=== PATIENT | male | born 1990 | race Caucasian/White ===

== ENCOUNTER 2022-12-06 15:22 | Observation (INO) ==
--- NOTE | 2022-12-06 15:43 | Emergency Department Note ---
Impression & Plan Hypoxia ADMIT ED Provider Note HPI: The patient is a 32-year-old gentleman who presents emergency department today from the outpatient surgery center with concern for hypoxia. Patient underwent tonsillectomy today with Dr. Eller. I did receive a call about the patient prior to his arrival from anesthesia, Dr. Uribe, who stated that after the patient's unremarkable procedure he had issues keeping his oxygen saturations out of the 80s once nasal cannula oxygen was removed. Concern does exist for noncardiogenic pulmonary edema and given his continued supplemental oxygen requirement they recommended transport to the ED for further management. On my initial assessment here in the ED the patient overall appears well, he is alert, he is hemodynamically stable, he is saturating at 98% on 4 L nasal cannula oxygen without tachypnea. He denies any chest pain. States he feels "sleepy". He is otherwise tolerating his secretions without issue, complains of a mild sore throat status post tonsillectomy today. ROS: - Per HPI *Outpatient medications and allergy history reviewed. *Pertinent external medical records reviewed. 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 Medical Decision Making: On arrival here to the ED the patient overall appears well, he is alert, he is stable on 4 L nasal cannula oxygen on my initial evaluation, denies any chest pain or current shortness of breath. Lab work obtained, patient was maintained on radiographer cardiac catheterization. Lab work shows no leukocytosis, hemoglobin is stable at 15.9, platelet count within normal limits, venous blood gas was obtained and shows mild acidosis with pH of 7.33, PCO2 just lightly elevated at 55, patient does not have any wheezing on my exam. CMP obtained does not show any critical electrolyte abnormalities. Chest x-ray was obtained that does not show any evidence of acute abnormalities, no evidence of pulmonary edema. Patient did have an episode of hypoxia at 88% when nasal cannula oxygen was not on. He was eventually weaned to room air with oxygen saturations borderline at about 92% with ambulation on Room Air. Given the patient's postoperative hypoxia that was prolonged, he will be admitted to observation overnight. Case was discussed with the on-call hospitalist, Dr. Montgomery, and the placement was placed for admission in stable condition. Consultants: Hospitalist, Dr. Montgomery Disposition discussion held by myself with: Patient and significant other at the bedside Diagnosis: 1. Postoperative hypoxia, acute 2. Status post tonsillectomy, postoperative day 0 Disposition: Admission Rohit Mason DO Emergency Medicine Past Med/Surg History Medical History History of COVID-19 2020 cold symptoms. Surgical History History of appendectomy History of wisdom tooth extraction Family History Other No family history of adverse response to anesthesia Social History Smoking Status: Never smoker Second Hand Exposure: No; Do You Dip or Chew Tobacco: No; Hx Alcohol Use: Yes Alcohol type: beer Alcohol Intake Frequency Comment: 1 OR 2 A WEEK Hx Substance Use: No Preferred Language: Yakut Communication Ability: Effective Biological Science Aide Required: No Beliefs That Will Affect Care: None Current Living Situation: Alone Feels Safe at Home: Yes Assistive Devices: None Allergies Allergies Allergy/AdvReac Type Severity Reaction Status Date / Time No Known Allergies Allergy Verified 12/06/22 17:18 Home Meds Previous Rx's Medication Instructions Recorded oxycodone 5 mg/5 mL oral solution 5 mg (5 mL) PO Q4H PRN pain #210 mL 12/06/22 Results & Data (ED) Vital Signs Vital Signs - 24 hr 12/06/22 15:22 12/06/22 15:30 12/06/22 16:01 Temperature 36.7 C Temperature Source Oral Pulse Rate 79 72 Pulse Rate [Apical] 72 Pulse Rhythm Regular Respiratory Rate 20 20 18 Respiratory Depth Normal Blood Pressure 120/74 Blood Pressure [Right Arm] 117/75 Blood Pressure Mean 89 Blood Pressure Mean [Right Arm] 89 Pulse Oximetry 96 95 96 Oxygen Delivery Method Nasal Cannula Nasal Cannula Nasal Cannula Oxygen Flow Rate 4 4 4 Sepsis Recent Fever Within 48 Hours No Sepsis New/Unexplained Change in Mental Status No Sepsis Action Taken by Nursing No Action Required 12/06/22 15:54 12/06/22 17:09 12/06/22 17:10 Temperature Temperature Source Pulse Rate 76 Pulse Rate [Apical] 53 L Pulse Rhythm Respiratory Rate 19 Respiratory Depth Blood Pressure Blood Pressure [Right Arm] 141/87 H Blood Pressure Mean Blood Pressure Mean [Right Arm] 105 Pulse Oximetry 95 88 L Oxygen Delivery Method Nasal Cannula Room Air Oxygen Flow Rate 3 Sepsis Recent Fever Within 48 Hours Sepsis New/Unexplained Change in Mental Status Sepsis Action Taken by Nursing Laboratory Data 12/06/22 15:52 12/06/22 15:52 Lab Results 12/06/22 12/06/22 12/06/22 Range/Units 15:52 15:52 15:52 WBC 9.67 (4.8-10.8) K/ul RBC 5.25 (4.70-6.10) M/uL Hgb 15.9 (14.0-18.0) g/dl Hct 43.7 (42.0-52.0) % MCV 83.2 (80.0-100.0) fL MCH 30.3 (25.0-34.0) pg MCHC 36.4 H (32.0-36.0) g/dL RDW Std Deviation 35.8 L (36.4-46.3) fL RDW Coeff of Miguel 11.9 (11.5-14.5) % Plt Count 175 (130-400) K/uL MPV 8.6 L (9.4-12.4) fL Immature Gran % (Auto) 0.4 % Neut % (Auto) 89.9 % Lymph % (Auto) 8.0 % [place] % (Auto) 1.4 % Eos % (Auto) 0.1 % Baso % (Auto) 0.2 % Neut # (Auto) 8.69 H (1.40-6.50) K/uL Lymph # (Auto) 0.77 L (1.2-3.4) K/uL [place] # (Auto) 0.14 (0.11-0.59) K/uL Eos # (Auto) 0.01 (0-0.50) K/uL Baso # (Auto) 0.02 (0-0.2) K/uL Immature Gran # (Auto) 0.04 (0.01-0.20) K/uL PT 11.0 (9.0-12.0) Seconds INR 1.0 (0.9-1.1) VBG pH (7.36-7.41) VBG pCO2 (38-50) mmHg VBG pO2 mmHg VBG HCO3 mmol/L VBG O2 Saturation % VBG Base Excess mEq/L Sodium 138 (136-145) mmol/L Potassium 4.3 (3.5-5.1) mmol/L Chloride 104 (98-107) mmol/L Carbon Dioxide 26 (21-32) mmol/L Anion Gap 8 (3-11) BUN 13 (6-23) mg/dl Creatinine 0.97 (0.6-1.4) mg/dl Est Cr Clr Drug Dosing 139.9 ml/min Est GFR ( Amer) 119.2 ml/min Est GFR (Non-Af Amer) 102.9 ml/min BUN/Creatinine Ratio 13.4 (10-20) Glucose 105 H (70-99(Fasting)) mg/dl Calcium 9.3 (8.6-10.3) mg/dl Total Bilirubin 0.6 (0.2-1.0) mg/dl AST 26 (13-39) U/L ALT 35 (7-52) U/L Alkaline Phosphatase 62 (34-104) U/L Total Protein 7.3 (6.0-8.3) gm/dl Albumin 4.3 (3.4-5.0) gm/dl Globulin 3.0 (2.5-4.0) gm/dl Albumin/Globulin Ratio 1.4 (0.9-2) SARS-CoV-2, RNA, NAAT (NEGATIVE) 12/06/22 12/06/22 Range/Units 15:52 16:10 WBC (4.8-10.8) K/ul RBC (4.70-6.10) M/uL Hgb (14.0-18.0) g/dl Hct (42.0-52.0) % MCV (80.0-100.0) fL MCH (25.0-34.0) pg MCHC (32.0-36.0) g/dL RDW Std Deviation (36.4-46.3) fL RDW Coeff of Miguel (11.5-14.5) % Plt Count (130-400) K/uL MPV (9.4-12.4) fL Immature Gran % (Auto) % Neut % (Auto) % Lymph % (Auto) % [place] % (Auto) % Eos % (Auto) % Baso % (Auto) % Neut # (Auto) (1.40-6.50) K/uL Lymph # (Auto) (1.2-3.4) K/uL [place] # (Auto) (0.11-0.59) K/uL Eos # (Auto) (0-0.50) K/uL Baso # (Auto) (0-0.2) K/uL Immature Gran # (Auto) (0.01-0.20) K/uL PT (9.0-12.0) Seconds INR (0.9-1.1) VBG pH 7.33 L (7.36-7.41) VBG pCO2 55 H (38-50) mmHg VBG pO2 21 mmHg VBG HCO3 29 mmol/L VBG O2 Saturation < 60.0 % VBG Base Excess 1.9 mEq/L Sodium (136-145) mmol/L Potassium (3.5-5.1) mmol/L Chloride (98-107) mmol/L Carbon Dioxide (21-32) mmol/L Anion Gap (3-11) BUN (6-23) mg/dl Creatinine (0.6-1.4) mg/dl Est Cr Clr Drug Dosing ml/min Est GFR ( Amer) ml/min Est GFR (Non-Af Amer) ml/min BUN/Creatinine Ratio (10-20) Glucose (70-99(Fasting)) mg/dl Calcium (8.6-10.3) mg/dl Total Bilirubin (0.2-1.0) mg/dl AST (13-39) U/L ALT (7-52) U/L Alkaline Phosphatase (34-104) U/L Total Protein (6.0-8.3) gm/dl Albumin (3.4-5.0) gm/dl Globulin (2.5-4.0) gm/dl Albumin/Globulin Ratio (0.9-2) SARS-CoV-2, RNA, NAAT NEGATIVE (NEGATIVE) Administered Medications Discontinued Medications Morphine Sulfate (Morphine Sulfate 2 Mg/Ml Carp) 2 mg IV NOW STA Stop: 12/06/22 17:11 Last Admin: 12/06/22 17:46 Dose: 2 mg Documented By: JEAN Ondansetron HCl (Ondansetron Inj 2 Mg/Ml 2 Ml Vial) Confirm Administered Dose 4 mg .ROUTE .STK-MED ONE Stop: 12/06/22 18:00 Last Admin: 12/06/22 18:23 Dose: Not Given Documented By: Ondansetron HCl (Ondansetron Inj 2 Mg/Ml 2 Ml Vial) 4 mg IV NOW STA Stop: 12/06/22 18:09 Last Admin: 12/06/22 18:16 Dose: 4 mg Documented By: Imaging Data Radiologist's Impression: Chest X-Ray 12/06/22 15:32 XR chest 1V portable HISTORY: 32 years-old Male Dyspnea COMPARISON: None TECHNIQUE: AP view of the chest FINDINGS: Cardiomediastinal and hilar silhouettes are within normal limits. Eventration of the right hemidiaphragm. No pneumothorax, pleural effusion, airspace consolidation or pulmonary edema. Bones of the chest appear grossly intact. IMPRESSION: No acute process. ACT 112: Negative or not required by law. The above report was generated using voice recognition software. It may contain grammatical, syntax or spelling errors. Electronically signed by: Franklin Espinosa M.D. 12/06/2022 3:55 PM Discharge Plan Visit Data Chief Complaint: Abnormal Labs/Diagnostic Testing Stated Complaint: TONSILECTOMY, "TROUBLING KEEPING SATS UP" ED Provider: Rohit Mason Discharge Problem: Hypoxia Patient Disposition: Admitted As Inpatient Discharge Instructions Interventions: ED Discharge Assessment Last Done: 12/06/22 18:31
--- NOTE | 2022-12-06 15:57 | XRay Report ---
XR chest 1V portable HISTORY: 32 years-old Male Dyspnea COMPARISON: None TECHNIQUE: AP view of the chest FINDINGS: Cardiomediastinal and hilar silhouettes are within normal limits. Eventration of the right hemidiaphr agm. No pneumothorax, pleural effusion, airspace consolidation or pulmonary edema. Bones of the chest appear grossly intact. IMPRESSION: No acute process. ACT 112: Negative or not required by law. The above report was generated using voice recognition software. It may contain grammatical, syntax o r spelling errors. Electronically signed by: Franklin Espinosa M.D. 12/06/2022 3:55 PM
[2022-12-06 16:08] LABS: Base Excess VBG 1.9 mEq/L; HCO3 VBG 29 mmol/L; Oxygen Saturation VBG < 60.0 %; PCO2 VBG 55 mmHg (38-50); PO2 VBG 21 mmHg; pH VBG 7.33 (7.36-7.41)
[2022-12-06 16:13] LABS: Basophils # (auto) 0.02 K/uL (0-0.2); Basophils % (auto) 0.2 %; Eosinophils # (auto) 0.01 K/uL (0-0.50); Eosinophils % (auto) 0.1 %; Hematocrit (blood only) 43.7 % (42.0-52.0); Hemoglobin 15.9 g/dl (14.0-18.0); Immature Granulocytes # (auto) 0.04 K/uL (0.01-0.20); Immature Granulocytes % (auto) 0.4 %; Lymphocytes # (auto) 0.77 K/uL (1.2-3.4); Mean Corpuscular Hemoglobin 30.3 pg (25.0-34.0); Mean Corpuscular Hgb Conc 36.4 g/dL (32.0-36.0); Mean Corpuscular Volume 83.2 fL (80.0-100.0); Mean Platelet Volume 8.6 fL (9.4-12.4); Monocytes # (auto) 0.14 K/uL (0.11-0.59); Monocytes % (auto) 1.4 %; Neutrophils # (auto) 8.69 K/uL (1.40-6.50); Neutrophils % (auto) 89.9 %; Platelet Count 175 K/uL (130-400); RDW Coefficient of Variation 11.9 % (11.5-14.5); RDW Standard Deviation 35.8 fL (36.4-46.3); Red Blood Count 5.25 M/uL (4.70-6.10); White Blood Count 9.67 K/ul (4.8-10.8)
[2022-12-06 16:28] LABS: Albumin Globulin Ratio 1.4 (0.9-2); Albumin Level 4.3 gm/dl (3.4-5.0); BUN Creatinine Ratio 13.4 (10-20); Bilirubin,Total 0.6 mg/dl (0.2-1.0); Calcium 9.3 mg/dl (8.6-10.3); Creatinine Clr Calc Pharmacy 139.9 ml/min; Est GFR (African American) 119.2 ml/min; Est GFR (Non-African American) 102.9 ml/min; Potassium 4.3 mmol/L (3.5-5.1); Total Protein 7.3 gm/dl (6.0-8.3)
[2022-12-06] MEDS ORDERED: MoRPHine SULFATE 2 MG/ML CARP IV STA (17:10)
[2022-12-06] MEDS ORDERED: ONDANSETRON INJ 2 MG/ML 2 ML VIAL ONE (17:59)
[2022-12-06] MEDS ORDERED: ONDANSETRON INJ 2 MG/ML 2 ML VIAL IV STA (18:08)
--- NOTE | 2022-12-06 18:13 | History & Physical Report ---
Date of Service December 06, 2022 Assessment & Plan (1) Postoperative hypoxia: Plan: 88% on room air on admission, suspect just taking time to recover. Consider sleep apnea testing if still having symptoms of this following recovery from tonsillectomy No acute pathology noted on CXR Incentive spirometer (2) Tonsillar hypertrophy: Plan: s/p tonsillectomy earlier today. No NSAIDs per Dr Cormier's Acetaminophen 1st line, oxycodone 2nd line for pain (3) Sleep-disordered breathing: Plan: Reason for tonsillectomy Plan VTE Prophylaxis - low risk Diet - Regular, soft bite sized Disposition - admit to med/surg Admission and Anticipated Discharge Date Admission Date: December 06, 2022 History of Present Illness Chief Complaint: Hypoxia Primary Care Provider: Madhav Cummins DO Medardo Mcmillan is a 32 year old male who presents to the ER due to hypoxia following tonsillectomy earlier today. The patient denies any shortness of breath. Notes sleep disordered breathing which was the reason for his tonsillectomy in the first place. Tired following the procedure with a sore throat but tolerating liquids. O2 sats 88% on room air. No known history of lung disease. Never smoker. Allergies Allergy/AdvReac Type Severity Reaction Status Date / Time No Known Allergies Allergy Verified 12/06/22 17:18 Home Medications Medication Instructions Recorded Confirmed Type oxycodone 5 mg/5 mL oral solution 5 mg (5 mL) PO Q4H PRN pain #210 mL 12/06/22 12/06/22 Rx Past Med/Surg History Medical History History of COVID-19 2020 cold symptoms. Surgical History History of appendectomy History of wisdom tooth extraction Family History Other No family history of adverse response to anesthesia Social History Smoking Status: Never smoker Second Hand Exposure: No; Do You Dip or Chew Tobacco: No; Tobacco Cessation Education Requested by Patient: No Hx Alcohol Use: Yes Alcohol type: beer Alcohol Intake Frequency Comment: 1 OR 2 A WEEK Hx Substance Use: No Preferred Language: Japanese Communication Ability: Effective Private Tutor Required: No Beliefs That Will Affect Care: None Current Living Situation: Other Current Living Situation Comment: girl friend Other Information That Helps Us Care for You: No Feels Safe at Home: Yes Safety Concerns: Feels Safe At This Time Assistive Devices: None Review of Systems Review of Systems: All systems reviewed & are unremarkable except as noted in HPI & below Physical Exam Constitutional: WD/WN, vitals as above Respiratory: normal respiratory effort, lungs clear to auscultation no stridor Cardiovascular: RRR, no murmur, no edema Gastrointestinal (Abdomen): normal bowel sounds, soft, nontender, no hepatosplenomegaly Results & Data Results & Data Vital Signs (Past 12 Hours) Vital Signs Temp Pulse Pulse Resp BP BP Pulse Ox 12/06/22 17:10 88 L 12/06/22 17:09 53 L 19 141/87 H 95 12/06/22 15:54 76 12/06/22 16:01 72 18 96 12/06/22 15:30 72 20 117/75 95 12/06/22 15:22 36.7 C 79 20 120/74 96 O2 Del Method O2 Flow Rate 12/06/22 17:10 Room Air 12/06/22 17:09 Nasal Cannula 3 12/06/22 15:54 12/06/22 16:01 Nasal Cannula 4 12/06/22 15:30 Nasal Cannula 4 12/06/22 15:22 Nasal Cannula 4 Laboratory Results Abnormal lab results 12/06/22 12/06/22 12/06/22 Range/Units 15:52 15:52 15:52 MCHC 36.4 H (32.0-36.0) g/dL RDW Std Deviation 35.8 L (36.4-46.3) fL MPV 8.6 L (9.4-12.4) fL Neut # (Auto) 8.69 H (1.40-6.50) K/uL Lymph # (Auto) 0.77 L (1.2-3.4) K/uL VBG pH 7.33 L (7.36-7.41) VBG pCO2 55 H (38-50) mmHg Glucose 105 H (70-99(Fasting)) mg/dl Diagnostic Findings XR chest 1V portable HISTORY: 32 years-old Male Dyspnea COMPARISON: None TECHNIQUE: AP view of the chest FINDINGS: Cardiomediastinal and hilar silhouettes are within normal limits. Eventration of the right hemidiaphragm. No pneumothorax, pleural effusion, airspace consolidation or pulmonary edema. Bones of the chest appear grossly intact. IMPRESSION: No acute process. Medications Administered ER Medications Given: Morphine 2mg IV Ondansetron 4mg IV ECG Rate (beats per minute): 69 Rhythm: sinus with SA Findings: no acute ischemic change Comparison ECG Date: no prior available Code Status & VTE Plan Code Status Full VTE Prophylaxis Plan VTE Prophylaxis will be ordered: No PG Care Time/CCT Total # of Minutes Spent Total Time Spent with Patient: Total time spent is greater than 50% in coordination of care (as documented) at patient's floor/unit and/or counseling patient: Coding Level of Care Code 43491 INT INP/OBS CARE 1/40MIN Diagnoses Postoperative hypoxia R09.02; Z98.890 Tonsillar hypertrophy J35.1 Sleep-disordered breathing G47.30
[2022-12-06 18:26] LABS: Appearance Urine Clear (Clear); Bilirubin Urine Negative (Negative); Blood Urine Negative (Negative); Color Urine Yellow; Glucose Urine UA Negative (Negative); Ketones Urine Negative (Negative); Leukocyte Esterase Urine Negative (Negative); Nitrite Urine Negative (Negative); Protein Urine Negative (Negative); Specific Gravity Urine 1.018 (1.000-1.030); Urobilinogen Urine Negative (Negative)
[2022-12-06] MEDS ORDERED: ACETAMINOPHEN 1,000 MG/100 ML VIAL IV PRN (19:21)
[2022-12-06] MEDS: oxyCODONE HCL IR 5 MG TAB (IMMEDIATE RELEASE) PO PRN (21:39)
[2022-12-06] MEDS ORDERED: ONDANSETRON INJ 2 MG/ML 2 ML VIAL IV PRN (22:45)
[2022-12-07] MEDS: oxyCODONE HCL IR 5 MG TAB (IMMEDIATE RELEASE) PO PRN ×2 (03:36→07:44)
--- NOTE | 2022-12-07 08:03 | Ears,Nose,Throat Progress Note ---
Date of Service December 07, 2022 Assessment & Plan (1) Sleep-disordered breathing: Plan 32yM POD1 s/p tonsillectomy for tonsilliths, SDB admitted for postoperative hypoxemia. CXR clear. Hypoxemia has resolved, presumed mild postobstructive pulmonary edema. OK for d/c home from ENT standpoint. Soft diet x2 weeks. Tylenol and oxycodone prn pain, rx at [facility] Call with any bleeding. F/u 1-2 months. Admission and Anticipated Discharge Date Admission Date: December 06, 2022 Subjective DESTINY o/n. Dyspnea resolved, O2 >93% on RA. Tolerating soft diet, good PO intake. Pain controlled. No bleeding. Physical Exam Physical Exam: WNWD, NAD Nonlabored respirations, no stridor Oropharynx with normal healing eschars, no clot or bleeding. +mild uvular edema Results & Data Vital Signs (Past 12 Hours) Vital Signs Temp Pulse Resp BP BP Pulse Ox O2 Del Method 12/07/22 07:43 36.7 C 71 16 151/83 H 96 Room Air 12/07/22 03:33 36.6 C 82 18 147/85 H 96 Room Air 12/06/22 20:47 36.8 C 96 H 18 154/86 H 97 Room Air PG Care Time/CCT Total # of Minutes Spent Total Time Spent with Patient: Total time spent is greater than 50% in coordination of care (as documented) at patient's floor/unit and/or counseling patient: Coding Level of Care Code None Diagnoses Sleep-disordered breathing G47.30
--- NOTE | 2022-12-07 08:57 | Discharge Summary ---
Date of Service December 07, 2022 Admission HPI Per Admitting Provider Medardo Mcmillan is a 32 year old male who presents to the ER due to hypoxia following tonsillectomy earlier today. The patient denies any shortness of breath. Notes sleep disordered breathing which was the reason for his to nsillectomy in the first place. Tired following the procedure with a sore throat but tolerating liquids. O2 sats 88% on room air. No known history of lung disease. Never smoker. Principal Diagnosis problem 1 Discharge Exam Constitutional WD/WN, vitals as above Respiratory normal respiratory effort, lungs clear to auscultation no stridor Cardiovascular RRR, no murmur, no edema Gastrointestinal (Abdomen) normal bowel sounds, soft, nontender, no hepatosplenomegaly Discharge Data Allergies Allergy/AdvReac Type Severity Reaction Status Date / Time No Known Allergies Allergy Verified 12/06/22 17:18 Consultations 12/06/22 17:22 ED Decision to Admit Stat Hospital Course (1) Postoperative hypoxia: 88% on room air on admission, suspect just taking time to recover. Consider sleep apnea testing if still having symptoms of this following recovery from tonsillectomy No acute pathology noted on CXR Incentive spirometer Ok by ENT for discharge, patient on room air, tolerating diet. DIscharge instructions noted below (2) Tonsillar hypertrophy: s/p tonsillectomy earlier today. No NSAIDs per Dr Cormier's Acetaminophen 1st line, oxycodone 2nd line for pain (3) Sleep-disordered breathing: Reason for tonsillectomy Total Time Total Time Spent Total Time Spent (In Minutes): 32 Discharge Plan Discharge Items Patient Disposition: Home - Self-Care Reason For Visit: POST OPERATIVE HYPOXIA Discharge Diagnosis: post operative hypoxia Activity: Resume your previous activity Non-emergency contact: Primary Care Provider Call non-emergency contact if: you have any medication questions Follow-up/Referrals: Madhav Cummins DO [Primary Care Provider] - 12/10/22 10:00 am Diet: Regular Diet Texture: Dental soft (bite-sized) Addtl Attending Provider Instructions: Soft diet x2 weeks. Tylenol and oxycodone prn pain, rx at [facility] Call with any bleeding Dr. Eller F/u 1-[address] Eller. Soft Diet -Meats and meat substitutes Foods Allowed Chicken, turkey, fish, tender cuts of beef and pork, ground meats, eggs, creamy nut butters, tofu, skinless hot dogs, sausage patties without whole spices Foods to Avoid Tough fibrous meats with gristle, meat with casings (hot dogs, sausage, kielbasa), lunch meats with whole spices, shellfish, beans, chunky peanut butter, nuts -Fruits and juices Foods Allowed Fruit juices without pulp, banana, avocado, peeled apples and applesauce, canned peaches and pears, cooked fruit without skin/seeds, peeled ripe peaches and pears, ripe seedless melon Foods to Avoid Juices with pulp, fresh fruit (except allowed peeled fruits), dried fruits, canned fruit cocktail and pineapple, coconut, frozen/ thawed berries -Vegetables Foods Allowed Well-cooked or canned vegetables without seeds or skin, potatoes without skin, tomato paste, puree and smooth sauces, vegetable juice, vegetable juice without pulp, olives Foods to Avoid Raw or lightly cooked vegetables such as Meherrin sprouts, broccoli, cabbage, onions, dark leafy greens, spivey peppers, summer squash, corn (fresh, frozen or canned), stewed tomatoes, potato skins, sauerkraut, pickles -Cereals and grains Foods Allowed Low-fiber dry or cooked cereals, white rice, pasta, macaroni, or noodles made with white or refined flour Foods to Avoid Cereals with nuts, berries, dried fruits, whole grain cereals, bran cereals, granola or raw oats, brown or wild rice, pasta, macaroni or noodles made with whole grain flour, barley, quinoa, popcorn -Breads and crackers Foods Allowed Breads and rolls made with white or refined flour, plain white bagel or toast, plain crackers made with white or refined flour, jourdan crackers Foods to Avoid Breads and rolls made with whole grain flour, breads and rolls made with raisins, nuts or seeds, multigrain crackers -Dairy Foods Allowed Milk, powdered milk, evaporated milk, non-dairy milk kefir, cheese, yogurt, cottage cheese Foods to Avoid Any dairy product mixed with fresh fruit (except allowed peeled fruits), berries, nuts or seeds, and granola -Desserts Foods Allowed Plain cake, pudding, custard, smooth ice cream, sherbet, gelatin, fruit whips, smooth milkshakes, marshmallows, cookies without dried fruits or nuts, snack chips and pretzels using refined flours Foods to Avoid Any dessert that contains nuts, dried fruits, coconut, or fruits with seeds -Herbs and spices Foods Allowed All ground spices or herbs, salt Foods to Avoid Whole spices like peppercorns, whole cloves, anise seeds, celery seeds, marco antonio, cody seeds, and fresh herbs -Snacks/other foods Foods Allowed Sugar, honey, smooth jelly without seeds, mayonnaise, smooth mustard, soy sauce, oil, butter, margarine, marshmallows Foods to Avoid Carbonated beverages, jams, or jellies with seeds, Pending Studies at Discharge: No Stand-Alone Forms: [facility], Smoking Cessation Medications and DC Order Prescriptions: New acetaminophen 325 mg capsule 650 mg PO Q6H PRN (Reason: fever or pain) 14 Days Qty: 112 0RF Rx Instructions: Take it scheduled for first 5 days. 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 SENT TO ER FROM RECOVERY ROOM. Discharge Orders: Discharge Order (Routine); Ordered 12/07/22 Ordered By: Solomon Peña Admission Data Admit Date/Time: 12/06/22 17:54 Attending Provider: Solomon Peña Admit Provider: Benjy Montgomery Primary Care Provider: Madhav Cummins Other Providers: Benjy Montgomery Other Interventions: Discharge Summary Assessment (RN) Last Done: 12/07/22 09:11 Coding Level of Care Code 27245 INP/OBS DISCH >30 MIN Diagnoses Postoperative hypoxia R09.02; Z98.890 Tonsillar hypertrophy J35.1 Sleep-disordered breathing G47.30
--- NOTE | 2022-12-08 05:59 | Electrocardiogram Report ---
Test Reason : Blood Pressure : / mmHG Vent. Rate : 069 BPM Atrial Rate : 069 BPM P-R Int : 158 ms QRS Dur : 096 ms QT Int : 394 ms P-R-T Axes : 037 036 024 degrees QTc Int : 422 ms Normal sinus rhythm with sinus arrhythmia Normal ECG No previous ECGs available Confirmed by Dimitry Menjivar ([id number]) on 12/08/2022 5:58:54 AM Referred By: Jesse Eller Confirmed By:Dimitry Menjivar
== END 2022-12-07 11:08 | disposition home or self-care (01) | DRG 206 ==
LOC: ED 15:22 → SUATTDRO 17:54 → INTOOBSV 17:54 → 3N 17:54